=== PATIENT | female | born 1960 | race Hispanic/Latino ===

== ENCOUNTER 2017-12-19 13:46 | Inpatient (IN) | payer OTHER ==
[~2017-12-19] VITALS: Ht 154.9 cm; Wt 65.3 kg
[2017-12-19] VITALS (12 sets, daily range): BP systolic 104–190; BP diastolic 54–85
[2017-12-19] MEDS ORDERED: OMEP20TA2 PO (15:59)
[2017-12-19] MEDS ORDERED: ACETAMINOPHEN 325 MG TAB PO PRN (16:00)
[2017-12-19] MEDS ORDERED: MORPHINE SULFATE 2 MG/ML 1ML SYG IV PRN (16:00)
[2017-12-19] MEDS ORDERED: NITROGLYCERIN 1GM/1 INCH PACKET TD SCH (16:00)
[2017-12-19] MEDS ORDERED: ONDANSETRON HCL 4 MG/2 ML VIAL IV PRN (16:00)
[2017-12-19] MEDS ORDERED: HYDRALAZINE HCL 20 MG/ML VIAL IV PRN (16:00)
[2017-12-19] MEDS ORDERED: IOHEXOL-350 75 ML VIAL IV ONE (16:26)
[2017-12-19] MEDS ORDERED: IOHEXOL-350 50ML VIAL IV ONE (16:26)
[2017-12-19] MEDS ORDERED: NITROGLYCERIN 5 MG/ML 10 ML VIAL IV ONE (16:26)
[2017-12-19] MEDS ORDERED: MEPERIDINE-PF 25 MG/ML SYG ONE (16:27)
[2017-12-19] MEDS ORDERED: LIDOCAINE HCL 2% 20ML ONE (16:27)
[2017-12-19] MEDS ORDERED: MIDAZOLAM HCL 1 MG/ML 2ML VIAL ONE (16:27)
[2017-12-19] MEDS ORDERED: SODIUM BICARB 50MEQ 50ML VIAL ONE (16:29)
[2017-12-19] MEDS: SODIUM CHLORIDE 0.9% 1000ML 1,000 ML IV SCH (18:32)
[2017-12-19] MEDS ORDERED: CEFTRIAXONE SODIUM 1 GM IVP SCH (21:00)
[2017-12-19] MEDS ORDERED: METOPROLOL TARTRATE 25 MG TAB PO SCH (21:00)
[2017-12-20] MEDS: SODIUM CHLORIDE 0.9% 1000ML 1,000 ML IV SCH (03:30)
[2017-12-20 03:58] LABS: MEAN CORPUSCULAR HGB CONC 34.1 g/dL (32.0-36.0); MEAN CORPUSCULAR VOLUME 96.6 fL (79-99); PLATELET COUNT (AUTO) 228 K/uL (130-400); RED BLOOD CELL COUNT(AUTO) 3.83 MIL/uL (4.00-5.50); RED CELL DISTRIBUTION WIDTH 11.9 % (11.0-15.5); WHITE BLOOD COUNT (AUTO) 5.9 K/uL (4.8-10.8)
[2017-12-20 04:00] VITALS: BP 108/64
[2017-12-20 04:26] LABS: CREATININE 0.7 mg/dL (0.5-1.5); POTASSIUM 3.8 mmol/L (3.5-5.1); THYROID STIMULATING HORMONE 1.01 uIU/mL (0.36-3.74); TROPONIN I 0.21 ng/mL (0.00-0.06)
[2017-12-20 07:00] VITALS: BP 124/84
[2017-12-20] MEDS ORDERED: DILTIAZEM HCL 180 MG CAP.SR.24H PO SCH (09:00)
[2017-12-20] MEDS ORDERED: PANTOPRAZOLE SODIUM 40 MG TABLET.DR PO SCH (09:00)
[2017-12-20] MEDS ORDERED: ASPIRIN 325 MG TABLET PO SCH (09:00)
[2017-12-20] MEDS ORDERED: ENOXAPARIN SODIUM 40 MG/0.4 ML SYRINGE SQ SCH (09:00)
[2017-12-20] MEDS ORDERED: ASPIRIN 81MG TAB.CHEW PO SCH (09:00)
[2017-12-20] MEDS ORDERED: AMLO2.5T2 PO (10:13)
== END 2017-12-20 11:15 | disposition home or self-care (01) | DRG 287 ==
LOC: 2CV 14:52 → 2AH 17:43
PROVIDERS: ADMIT Internal Medicine; ATTEND Internal Medicine
PROC: 4A023N7 Measurement of Cardiac Sampling and Pressure, Left Heart, Percutaneous Approach (ICD-10-PCS; principal; 2017-12-19)
PROC: B2111ZZ Fluoroscopy of Multiple Coronary Arteries using Low Osmolar Contrast (ICD-10-PCS; 2017-12-19)
PROC: B2151ZZ Fluoroscopy of Left Heart using Low Osmolar Contrast (ICD-10-PCS; 2017-12-19)
DX: I20.1 Angina pectoris with documented spasm (principal); E78.5 Hyperlipidemia, unspecified; K21.9 Gastro-esophageal reflux disease without esophagitis; Z90.49 Acquired absence of other specified parts of digestive tract
CPT/HCPCS: 36415; 80048; 80061; 82550; 83874; 84443; 84484; 85027; 93005; 93458; 99156; 99157; C1760; C1894; J0696; J1644; J1650; J2175; J2250; J3490; J7030; Q9967